=== PATIENT | male | born 1980 | race Caucasian/White ===

== ENCOUNTER 2020-01-19 05:11 | Emergency (ER) | payer BC ==
[2020-01-19] MEDS ORDERED: XYLOCAINE 1% HCL 20 ML MDV ONE (05:37)
--- NOTE | 2020-01-19 06:00 | ERPHSYRPT ---
- History of Present Illness Time Seen by Provider: 01/19/20 05:30 Source: patient Exam Limitations: no limitations Patient Subjective Stated Complaint: fell down basement stairs Triage Nursing Assessment: pt states, "I fell down pt stairs, I assume I missed a step". Pt ambulated upstairs to where was. Pt's spouse placed cold cloth on his forehead, pt then had loss of consciousness and pt's said he was shaking, which was seizure like. Pt's laceratio to lt eyebrow is 3cm L x 0.3 cm W x 0.2 cm D. Pt c/o sore rib to lt upper chest and has carpet burn area to lt hip/buttock area. Physician History: 39 years old generally healthy male presented in the ER with chief complaint of laceration to the left eyebrow area after he missed a step while going in the basement and hit against the floor. Patient then got up and walked upstairs, placed a cold rag and had a questionable loss of consciousness for a few seconds. Is complaining of mild headache in the left frontal area, denies any difficulty movements of eyeball, blurry vision or diplopia. No numbness tingling or weakness. He is also complaining of mild soreness in the left chest wall laterally. No difficulty breathing. No abdominal pain nausea or vomiting. No injury anywhere else. Unsure about tetanus status. Occurred: just prior to arrival Severity: moderate Head Injury Location: frontal Method of Injury: fell Loss of Consciousness: brief (seconds) Associated Symptoms: chest pain, headaches, No nausea, No vomiting, No shortness of breath Allergies/Adverse Reactions: No Known Drug Allergies Allergy (Unverified 01/19/20 05:32) Hx Tetanus, Diphtheria Vaccination/Date Given: No Hx Influenza Vaccination/Date Given: Yes Hx Pneumococcal Vaccination/Date Given: No Immunizations Up to Date: Yes Travel Risk - International Travel Have you traveled outside of the country in past 3 weeks: No Have you or anyone close to you been diagnosed with or: No Do your reside in a community with a known COVID-19 case?: Yes If Yes where:: [place] - Coronavirus Screening Has patient experienced Coronavirus symptoms: No - Review of Systems Constitutional: No Symptoms Eyes: Photophobia Ears, Nose, & Throat: No Symptoms Respiratory: No Symptoms Cardiac: Chest Pain Abdominal/Gastrointestinal: No Symptoms Genitourinary Symptoms: No Symptoms Musculoskeletal: No Symptoms Skin: No Symptoms Neurological: No Symptoms Psychological: No Symptoms Endocrine: No Symptoms Hematologic/Lymphatic: No Symptoms Immunological/Allergic: No Symptoms - Past Medical History Pertinent Past Medical History: No Neurological History: No Pertinent History ENT History: No Pertinent History Cardiac History: No Pertinent History Respiratory History: No Pertinent History Endocrine Medical History: No Pertinent History Musculoskeletal History: Fractures GI Medical History: Gallbladder Disease History: No Pertinent History Psycho-Social History: No Pertinent History Male Reproductive Disorders: No Pertinent History Other Medical History: dehydration - Past Surgical History Past Surgical History: Yes Neuro Surgical History: No Pertinent History Cardiac: No Pertinent History Respiratory: No Pertinent History Gastrointestinal: Cholecystectomy Genitourinary: No Pertinent History Musculoskeletal: No Pertinent History Male Surgical History: No Pertinent History - Social History Smoking Status: Never smoker Exposure to second hand smoke: No Drug Use: none Patient Lives Alone: No - Nursing Vital Signs Nursing Vital Signs: Initial Vital Signs Temperature 98.0 F 01/19/20 05:20 Pulse Rate 77 01/19/20 05:20 Respiratory Rate 17 01/19/20 05:20 Blood Pressure 127/74 01/19/20 05:20 O2 Sat by Pulse Oximetry 99 01/19/20 05:20 Pain Scale Pain Intensity 5 - Siva Coma Score Best Eye Response (Siva): (4) open spontaneously Best Verbal Response ([place]): (5) oriented Best Motor Response (Siva): (6) obeys commands [place] Total: 15 - Physical Exam General Appearance: no apparent distress, alert Head Injury: lacerations (3.5 cm left eyebrow area deep to periosteum. No active bleeding/spurting but mild ooze.), No raccoon eyes Eye Exam: bilateral eye: normal inspection, PERRL, EOMI ENT Exam: airway nml, evidence of ENT injury, nml ext.inspection Neck Exam: supple, trachea midline, full range of motion, normal inspection Cardiovascular/Respiratory Exam: normal breath sounds, regular rate/rhythm, No chest non-tender (Minimal tenderness left lateral chest wall), No subcutaneous emphysema, No crepitus, No decreased breath sounds, No paradoxical movements, No accessory muscle use Gastrointestinal/Abdominal Exam: soft, non tender, no distention Back Exam: normal inspection, normal range of motion Extremity Exam: non-tender, normal range of motion, normal inspection Mental Status Exam: alert, oriented x 3, 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 Exam: normal hearing, normal speech, PERRL Coordination/Gait Exam: normal finger to nose, normal cerebellar function Motor/Sensory Exam: no motor deficit, no sensory deficit, no pronator drift, negative Babinski's sign Skin Exam: normal color SpO2 Interpretation: normal SpO2: 99 O2 Delivery: Room Air Procedures - Laceration/Wound Repair Left Eye Wound Location: Left Wound Length (cm): 3.5 Wound Explored: clean Irrigated: Yes Hibiclens Prep: Yes Anesthesia: 1% Lidocaine Volume Anesthetic (ccs): 4 Wound Debrided: minimal Wound Repaired With: sutures Suture Size/Type: 5-0, ethilon Number of Sutures: 7 Layer Closure?: Yes Deep Layer Suture Size/Type: 4:0 Number Deep Layer Sutures: 3 Sterile Dressing Applied?: Yes Splint Applied?: No Sling Applied?: No - Course Nursing assessment & vital signs reviewed: Yes Ordered Tests: Active Orders 24 hr Category Date Time Status Isolation, Initiate & Maintain Q4 Care 01/19/20 05:31 Active HEAD WITHOUT CONTRAST [CT] Routine Exams 01/19/20 05:50 Taken RIBS UNILATERAL Stat Exams 01/19/20 Ordered Medication Summary Discontinued Medications Generic Name Dose Route Start Last Admin Trade Name Christine PRN Reason Stop Dose Admin Bacitracin Zinc Confirm 01/19/20 06:29 Baciguent Packet Administered 01/19/20 06:30 Dose 1 gm .ROUTE .STK-MED ONE Bacitracin Zinc 0.9 gm 01/19/20 06:36 01/19/20 06:40 Baciguent Packet TP 01/19/20 06:37 0.9 gm STAT ONE Administration Cephalexin HCl Confirm 01/19/20 06:29 Keflex 500 Mg Administered 01/19/20 06:30 Dose 500 mg .ROUTE .STK-MED ONE Cephalexin HCl 500 mg 01/19/20 06:36 01/19/20 06:40 Keflex 500 Mg PO 01/19/20 06:37 500 mg STAT ONE Administration Diphtheria/Tetanus/Acell Pertussis 0.5 ml 01/19/20 06:01 01/19/20 06:05 Adacel Vial IM 01/19/20 06:02 0.5 ml .ONCE ONE Administration Diphtheria/Tetanus/Acell Pertussis Confirm 01/19/20 06:04 Adacel Vial Administered 01/19/20 06:05 Dose 0.5 ml IM .STK-MED ONE Lidocaine HCl Confirm 01/19/20 05:37 Xylocaine 1% Hcl 20 Ml Mdv Administered 01/19/20 05:38 Dose 10 ml .ROUTE .STK-MED ONE Lidocaine HCl 10 ml 01/19/20 06:09 01/19/20 06:11 Xylocaine 1% Hcl 20 Ml Mdv IJ 01/19/20 06:10 10 ml STAT ONE Administration - Progress Progress: improved, re-examined Progress Note: 01/19/20 06:29 39 years old is evaluated for left eyebrow laceration after fall With questionable brief loss of consciousness for a few seconds. Nonfocal neuro exam throughout stay in the ER. Intact range of motion of eyeball. No hyphema or globe injury. CT head is negative for any acute skull fracture or intracranial findings. I have obtained a rib series and is negative for any fracture/pneumo/hemothorax. I believe patient has a small contusion. Recommended [id number] pain medication to take as needed. Bacitracin is applied and will start him on Keflex. Recommended outpatient follow-up for wound recheck and suture removal. Counseled pt/family regarding: diagnosis, need for follow-up, rad results - Departure Departure Disposition: Home Clinical Impression: Laceration of forehead Qualifiers: Encounter type: initial encounter Qualified Code(s): S01.81XA - Laceration without foreign body of other part of head, initial encounter Contusion of rib on left side Qualifiers: Encounter type: initial encounter Qualified Code(s): S20.212A - Contusion of left front wall of thorax, initial encounter Condition: Stable Critical Care Time: No Referrals: MIMA FULLER MD [Primary Care Provider] - (3 to 5 days for reevaluation and suture removal) Instructions: Concussion, Adult (DC), Laceration Repair With Stitches (DC) Additional Instructions: Take Tylenol as needed for pain. Keep it clean. Follow-up with primary care physician for reevaluation and suture removal in 3 to 5 days. Return to ER for worsening headache, difficulty movements of eyeball, visual changes, dizziness lightheadedness, vomiting etc. Prescriptions: Cephalexin Mh 500 mg [Keflex 500 mg] 500 mg PO TID #21 capsule
[2020-01-19] MEDS ORDERED: Adacel Vial IM ONE ×2 (06:01→06:04)
[2020-01-19] MEDS ORDERED: XYLOCAINE 1% HCL 20 ML MDV IJ ONE (06:09)
[2020-01-19 06:13] VITALS: BP 147/97; PULSE 80
[2020-01-19 06:28] VITALS: O2SAT 99
[2020-01-19] MEDS ORDERED: KEFLEX 500 MG ONE (06:29)
[2020-01-19] MEDS ORDERED: BACIGUENT PACKET ONE (06:29)
[2020-01-19] MEDS ORDERED: KEFLEX 500 MG PO ONE (06:36)
[2020-01-19] MEDS ORDERED: BACIGUENT PACKET TP ONE (06:36)
--- NOTE | 2020-01-19 09:14 | XRAY ---
Indication: Left forehead laceration following fall. Multiple contiguous axial images obtained through the head without contrast. Comparison: None Normal appearing brain parenchyma, ventricles, and bony calvarium. Visualized paranasal sinuses and mastoid air cells are clear. Impression: Normal CT head without contrast exam. Comment: Preliminary interpretation was made by [facility]. No critical discrepancy.
--- NOTE | 2020-01-19 09:16 | XRAY ---
Indication: Pain following fall. Comparison: None 2 view left ribs demonstrates mediastinal calcified nodes and cholecystectomy clips. No other bony, articular, or soft tissue abnormalities.
== END 2020-01-19 06:45 | disposition home or self-care (01) ==
LOC: ED 05:11
DX: S01.81XA Laceration without foreign body of other part of head, initial encounter (principal); S20.212A Contusion of left front wall of thorax, initial encounter; W10.9XXA Fall (on) (from) unspecified stairs and steps, initial encounter; Y93.01 Activity, walking, marching and hiking; Y92.098 Other place in other non-institutional residence as the place of occurrence of the external cause; R51 Headache; R55 Syncope and collapse
CPT/HCPCS: 12013; 70450; 71100; 90471; 90715; 99284; A9270-GY